=== PATIENT | female | born 1970 | race African-American/Black ===

== ENCOUNTER → 2018-05-22 | Outpatient (CLI) | payer BC ==
[~2018-05-22] MED LIST: IOPAMIDOL 370 MG/ML 200 ML INFUS..BTL INJ ONE; SODIUM CHLORIDE 0.9% 50ML 50 ML ONE
--- NOTE | 2018-05-22 17:58 | NUR ---
1700: 20 gauge 1" Rc Power Needle placed in right sided port-a-cath per MD order; pt tolerated well; good draw; good flush.
--- NOTE | 2018-05-22 18:03 | NUR ---
Port-a-cath packed with 5cc of 100 units per cc of heparin per Md Grullon order. Port de-accessed; pt tolerated well; no swelling or bleeding
--- NOTE | 2018-05-23 04:13 | Diagnostic Imaging Report ---
EXAM: CT Chest, Abdomen and Pelvis WITH contrast INDICATION: Metastatic breast cancer. COMPARISON: None. TECHNIQUE: Chest, abdomen and pelvis were scanned utilizing a multidetector helical scanner from the lung apex to the pubic symphysis before and after administration of IV contrast. Coronal and sagittal reformations were obtained. Routine protocol was performed. Scan was performed when during portal venous phase. IV CONTRAST: 100 cc Isovue-370 ORAL CONTRAST: 700 cc water. RADIATION DOSE: Total DLP: 748.35 mGy*cm Estimated effective dose: (DLP x 0.015 x size factor) mSv COMPLICATIONS: None FINDINGS: LINES and TUBES: Right chest Port-A-Cath with a sterile tip in the cavoatrial junction. LUNGS AND AIRWAYS: 5 mm nodule in the left apex on image 25. 1.0 cm nodule in the right upper lobe medially on image 61. 3 mm noncalcified nodule in the right middle lobe on image 54. 4 mm nodule in the left upper lobe laterally on image 47. 6 mm nodule in the lingula on image 86. Lingular subsegmental atelectasis. Airways are normal. PLEURA: The pleural spaces are clear. HEART AND MEDIASTINUM: The thyroid gland is normal. Mildly prominent right pretracheal lymph node measures 1.3 cm in short axis on image 26 series 2. 1.3 cm in lymph node with necrotic center in the left axillary region on image 18. Additional smaller lymph nodes are scattered throughout the left axillary region. Surgical clip in the left axilla on image 32. The heart is normal in size.. There is no pericardial effusion. HEPATOBILIARY: No focal hepatic lesions. Mild central intrahepatic biliary dilatation. GALLBLADDER: No radio-opaque stones or sludge. No wall thickening. SPLEEN: No splenomegaly. PANCREAS: No focal masses or ductal dilatation. ADRENALS: No adrenal nodules KIDNEYS/URETERS: Kidneys enhance symmetrically. No hydronephrosis. No cystic or solid mass lesions. No stones. GI TRACT: No abnormal distention, wall thickening, or evidence of bowel obstruction. Appendix is normal. PELVIC ORGANS/BLADDER: Unremarkable. LYMPH NODES: No lymphadenopathy. VESSELS: Unremarkable. PERITONEUM / RETROPERITONEUM: No free air or fluid. 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 Extensive mixed lytic sclerotic lesion involving the sacrum and to lesser degree right ilium as seen on axial images 99 and 100. Lucent foci in a few thoracal lumbar vertebral bodies, particularly L2 and L3 may represent metastatic foci. SOFT TISSUES: Irregular soft tissue in the left breast on image 39. Mild skin thickening in the left breast. IMPRESSION: 1. Multiple bilateral pulmonary nodules consistent with metastasis. 2. Multifocal osseous metastasis, most severely affecting the sacrum, right ilium and left inferior pubic bone with nondisplaced fractures. Signed by: Dr. Mar Limon M.D. on 05/23/2018 4:10 AM
== END ==
LOC: CT 16:14
PROVIDERS: ATTEND Internal Medicine Hematology & Oncology
DX: C50.919 Malignant neoplasm of unspecified site of unspecified female breast (principal)
CPT/HCPCS: 71260; 74177; Q9967

== ENCOUNTER → 2018-05-23 | Outpatient (CLI) | payer BC ==
[2018-05-23 13:00] LABS: BASOPHILS % 0.2 % (0.0-1.0); EOSINOPHILS # (AUTO) 0.1 (0.0-0.4); EOSINOPHILS % 1.7 % (0.0-6.0); HEMATOCRIT 33.1 % (34.2-44.1); HEMOGLOBIN 11.3 g/dL (12.0-16.0); LYMPHOCYTES # (AUTO) 1.5 (1.0-3.2); LYMPHOCYTES % 23.3 % (18.0-39.1); MEAN CORPUSCULAR HEMOGLOBIN 31.3 pg (28-32); MEAN CORPUSCULAR HGB CONC 34.1 g/dL (31-35); MEAN CORPUSCULAR VOLUME 91.7 fL (81-99); MONOCYTES # (AUTO) 0.7 (0.2-0.8); NEUTROPHILS # (AUTO) 4.3 (2.1-6.9); NEUTROPHILS % 64.5 % (38.7-80.0); PLATELET COUNT 216 x10e3/uL (140-360); RED BLOOD COUNT 3.61 x10e6/uL (3.6-5.1); RED CELL DISTRIBUTION WIDTH 13.5 % (11.7-14.4)
[2018-05-23 13:14] LABS: ALANINE AMINOTRANSFERASE 13 IU/L (0-55); ALBUMIN 3.1 g/dL (3.5-5.0); ALBUMIN/GLOBULIN RATIO 0.8 (0.8-2.0); ALKALINE PHOSPHATASE 88 IU/L (40-150); ANION GAP 8.6 mmol/L (8-16); BLOOD UREA NITROGEN 6 mg/dL (7-26); BUN/CREATININE RATIO 9 (6-25); CALCIUM 8.6 mg/dL (8.4-10.2); CARBON DIOXIDE 28 mmol/L (22-29); CHLORIDE 99 mmol/L (98-107); CREATININE, SERUM 0.66 mg/dL (0.57-1.11); EST GLOMERULAR FILTRATION RATE > 60 ML/MIN (60-); GLUCOSE 87 mg/dL (74-118); POTASSIUM 3.6 mmol/L (3.5-5.1); SODIUM 132 mmol/L (136-145)
--- NOTE | 2018-05-23 16:30 | NUR ---
Port-a-cath packed with 5ml of 100 units per ml of heparin per Oxana Nair. Port de-accessed; pt tolerated well; no swelling or bleeding
--- NOTE | 2018-05-24 12:12 | Diagnostic Imaging Report ---
Bone Scan, delayed phase INDICATION: Metastatic breast cancer; restaging COMPARISON: CT CAP 05/22/2018 REPORT: Approximately 2.5 hours following intravenous administration of 26 mCi of Tc-99m MDP, delayed total body images in the anterior and posterior projections and selected spot images were obtained. Foci of increased tracer are seen in the mid aspect of the sacrum inferiorly, superior aspect of the right SI joint, right iliac bone at the acetabulum and the right inferior pubic ramus. A focus of decreased tracer is seen in the inferior portion of the right SI joint. A focus of mildly increased tracer is seen in the ischial portion of the left acetabulum. Otherwise, distribution of tracer activity is unremarkable throughout the skeletal system. No abnormal accumulation of tracer is seen in the soft tissues or urinary tract. IMPRESSION: 1. Osteoblastic and osteolytic foci in the sacrum and right hemipelvis correspond to metastases with pathologic fractures seen on recent CT scan. 2. The osteoblastic process in the left acetabulum is nonspecific in appearance and could represent degenerative change of neoplastic process. 3. No lesions elsewhere in the skeletal system to suggest other bone metastases, specifically, none identified in the thoracolumbar spine to correspond to lytic lesions seen on recent CT. Signed by: Dr. April Villalta M.D. on 05/24/2018 12:08 PM
== END ==
LOC: NM 10:09
PROVIDERS: ATTEND Internal Medicine Hematology & Oncology
DX: C50.919 Malignant neoplasm of unspecified site of unspecified female breast (principal)
CPT/HCPCS: 36415; 78306; 80053; 85025; A9503